=== PATIENT | female | born 1965 | race Caucasian/White ===

== ENCOUNTER 2023-10-07 13:17 | Outpatient (CLI) | payer BC | END 2023-10-07 13:18 | disposition home or self-care (01) | LOC: CSHWCC 13:17 | PROVIDERS: ATTEND Nurse Practitioner Family | DX: E11.621 Type 2 diabetes mellitus with foot ulcer (principal); L97.512 Non-pressure chronic ulcer of other part of right foot with fat layer exposed; L97.522 Non-pressure chronic ulcer of other part of left foot with fat layer exposed; M14.671 Charcot's joint, right ankle and foot; M14.672 Charcot's joint, left ankle and foot; C91.41 Hairy cell leukemia, in remission; N02.B1 Recurrent and persistent immunoglobulin A nephropathy with glomerular lesion; L95.8 Other vasculitis limited to the skin | CPT/HCPCS: 11042; 99213; G0463 ==

== ENCOUNTER 2023-11-03 10:25 | Outpatient (CLI) | payer BC | END 2023-11-03 10:26 | disposition home or self-care (01) | LOC: CSHWCC 10:25 | PROVIDERS: ATTEND Nurse Practitioner Family | DX: E11.621 Type 2 diabetes mellitus with foot ulcer (principal); L97.512 Non-pressure chronic ulcer of other part of right foot with fat layer exposed; L97.522 Non-pressure chronic ulcer of other part of left foot with fat layer exposed; M14.671 Charcot's joint, right ankle and foot; M14.672 Charcot's joint, left ankle and foot; C91.41 Hairy cell leukemia, in remission; L59.8 Other specified disorders of the skin and subcutaneous tissue related to radiation; N02.B1 Recurrent and persistent immunoglobulin A nephropathy with glomerular lesion | CPT/HCPCS: 11042; 87070; 87077; 87186; 87205; 97597 ==

== ENCOUNTER 2023-11-08 14:06 | Outpatient (CLI) | payer BC | END 2023-11-08 14:07 | disposition home or self-care (01) | LOC: CSHWCC 14:06 | PROVIDERS: ATTEND Nurse Practitioner Family | DX: E11.621 Type 2 diabetes mellitus with foot ulcer (principal); L97.512 Non-pressure chronic ulcer of other part of right foot with fat layer exposed; L97.522 Non-pressure chronic ulcer of other part of left foot with fat layer exposed; M14.671 Charcot's joint, right ankle and foot; M14.672 Charcot's joint, left ankle and foot; C91.41 Hairy cell leukemia, in remission; N02.B1 Recurrent and persistent immunoglobulin A nephropathy with glomerular lesion; L95.8 Other vasculitis limited to the skin; L08.9 Local infection of the skin and subcutaneous tissue, unspecified | CPT/HCPCS: 99213; G0463 ==

== ENCOUNTER 2023-11-11 10:21 | Outpatient (CLI) | payer BC | END 2023-11-11 10:22 | disposition home or self-care (01) | LOC: CSHWCC 10:21 | PROVIDERS: ATTEND Nurse Practitioner Family | DX: E11.621 Type 2 diabetes mellitus with foot ulcer (principal); L97.512 Non-pressure chronic ulcer of other part of right foot with fat layer exposed; L97.522 Non-pressure chronic ulcer of other part of left foot with fat layer exposed; M14.671 Charcot's joint, right ankle and foot; M14.672 Charcot's joint, left ankle and foot; C91.41 Hairy cell leukemia, in remission; N02.B1 Recurrent and persistent immunoglobulin A nephropathy with glomerular lesion; L95.8 Other vasculitis limited to the skin; L08.9 Local infection of the skin and subcutaneous tissue, unspecified | CPT/HCPCS: 11042; 97597 ==

== ENCOUNTER 2023-11-15 09:59 | Outpatient (CLI) | payer BC | END 2023-11-15 10:00 | disposition home or self-care (01) | LOC: CSHWCC 09:59 | PROVIDERS: ATTEND Nurse Practitioner Family | DX: E11.621 Type 2 diabetes mellitus with foot ulcer (principal); L97.512 Non-pressure chronic ulcer of other part of right foot with fat layer exposed; L97.522 Non-pressure chronic ulcer of other part of left foot with fat layer exposed; M14.671 Charcot's joint, right ankle and foot; M14.672 Charcot's joint, left ankle and foot; C91.41 Hairy cell leukemia, in remission; N02.B1 Recurrent and persistent immunoglobulin A nephropathy with glomerular lesion; L95.8 Other vasculitis limited to the skin; L08.9 Local infection of the skin and subcutaneous tissue, unspecified | CPT/HCPCS: 29445 ==

== ENCOUNTER 2023-11-17 10:52 | Outpatient (CLI) | payer BC | END 2023-11-17 10:53 | disposition home or self-care (01) | LOC: CSHWCC 10:52 | PROVIDERS: ATTEND Nurse Practitioner Family | DX: E11.621 Type 2 diabetes mellitus with foot ulcer (principal); L97.512 Non-pressure chronic ulcer of other part of right foot with fat layer exposed; L97.522 Non-pressure chronic ulcer of other part of left foot with fat layer exposed; M14.671 Charcot's joint, right ankle and foot; M14.672 Charcot's joint, left ankle and foot; C91.41 Hairy cell leukemia, in remission; N02.B1 Recurrent and persistent immunoglobulin A nephropathy with glomerular lesion; L95.8 Other vasculitis limited to the skin; L08.9 Local infection of the skin and subcutaneous tissue, unspecified | CPT/HCPCS: 11042 ==

== ENCOUNTER 2023-11-24 10:38 | Outpatient (CLI) | payer BC | END 2023-11-24 10:39 | disposition home or self-care (01) | LOC: CSHWCC 10:38 | PROVIDERS: ATTEND Nurse Practitioner Family | DX: E11.621 Type 2 diabetes mellitus with foot ulcer (principal); L97.512 Non-pressure chronic ulcer of other part of right foot with fat layer exposed; L97.522 Non-pressure chronic ulcer of other part of left foot with fat layer exposed; M14.671 Charcot's joint, right ankle and foot; M14.672 Charcot's joint, left ankle and foot; C91.41 Hairy cell leukemia, in remission; N02.B1 Recurrent and persistent immunoglobulin A nephropathy with glomerular lesion; L95.8 Other vasculitis limited to the skin; L08.9 Local infection of the skin and subcutaneous tissue, unspecified | CPT/HCPCS: 11042 ==

== ENCOUNTER 2023-12-01 10:06 | Outpatient (CLI) | payer BC | END 2023-12-01 10:07 | disposition home or self-care (01) | LOC: CSHWCC 10:06 | PROVIDERS: ATTEND Nurse Practitioner Family | DX: E11.621 Type 2 diabetes mellitus with foot ulcer (principal); L97.512 Non-pressure chronic ulcer of other part of right foot with fat layer exposed; L97.522 Non-pressure chronic ulcer of other part of left foot with fat layer exposed; M14.671 Charcot's joint, right ankle and foot; M14.672 Charcot's joint, left ankle and foot; C91.41 Hairy cell leukemia, in remission; N02.B1 Recurrent and persistent immunoglobulin A nephropathy with glomerular lesion; L95.8 Other vasculitis limited to the skin; L08.9 Local infection of the skin and subcutaneous tissue, unspecified | CPT/HCPCS: 11042 ==

== ENCOUNTER 2023-12-08 09:52 | Outpatient (CLI) | payer BC | END 2023-12-08 09:53 | disposition home or self-care (01) | LOC: CSHWCC 09:52 | PROVIDERS: ATTEND Nurse Practitioner Family | DX: E11.621 Type 2 diabetes mellitus with foot ulcer (principal); L97.512 Non-pressure chronic ulcer of other part of right foot with fat layer exposed; L97.522 Non-pressure chronic ulcer of other part of left foot with fat layer exposed; M14.671 Charcot's joint, right ankle and foot; M14.672 Charcot's joint, left ankle and foot; C91.41 Hairy cell leukemia, in remission; N02.B1 Recurrent and persistent immunoglobulin A nephropathy with glomerular lesion; L95.8 Other vasculitis limited to the skin; L08.9 Local infection of the skin and subcutaneous tissue, unspecified | CPT/HCPCS: 97597; 99213; G0463 ==

== ENCOUNTER 2023-12-15 09:39 | Outpatient (CLI) | payer BC | END 2023-12-15 09:40 | disposition home or self-care (01) | LOC: CSHWCC 09:39 | PROVIDERS: ATTEND Nurse Practitioner Family | DX: E11.621 Type 2 diabetes mellitus with foot ulcer (principal); L97.512 Non-pressure chronic ulcer of other part of right foot with fat layer exposed; M14.671 Charcot's joint, right ankle and foot; M14.672 Charcot's joint, left ankle and foot; C91.41 Hairy cell leukemia, in remission; N02.B1 Recurrent and persistent immunoglobulin A nephropathy with glomerular lesion; L95.8 Other vasculitis limited to the skin; L08.9 Local infection of the skin and subcutaneous tissue, unspecified | CPT/HCPCS: 97597 ==

== ENCOUNTER 2023-12-22 16:05 | Outpatient (CLI) | payer BC | END 2023-12-22 16:06 | disposition home or self-care (01) | LOC: CSHWCC 16:05 | PROVIDERS: ATTEND Nurse Practitioner Family | DX: E11.621 Type 2 diabetes mellitus with foot ulcer (principal); L97.512 Non-pressure chronic ulcer of other part of right foot with fat layer exposed; M14.671 Charcot's joint, right ankle and foot; M14.672 Charcot's joint, left ankle and foot; C91.41 Hairy cell leukemia, in remission; N02.B1 Recurrent and persistent immunoglobulin A nephropathy with glomerular lesion; L95.8 Other vasculitis limited to the skin; L08.9 Local infection of the skin and subcutaneous tissue, unspecified | CPT/HCPCS: 11042 ==

== ENCOUNTER 2024-01-05 11:55 | Outpatient (CLI) | payer BC | END 2024-01-05 11:56 | disposition home or self-care (01) | LOC: CSHWCC 11:55 | PROVIDERS: ATTEND Nurse Practitioner Family | DX: E11.621 Type 2 diabetes mellitus with foot ulcer (principal); L97.512 Non-pressure chronic ulcer of other part of right foot with fat layer exposed; M14.671 Charcot's joint, right ankle and foot; M14.672 Charcot's joint, left ankle and foot; C91.41 Hairy cell leukemia, in remission; N02.B1 Recurrent and persistent immunoglobulin A nephropathy with glomerular lesion; L95.8 Other vasculitis limited to the skin; L08.9 Local infection of the skin and subcutaneous tissue, unspecified | CPT/HCPCS: 11042 ==

== ENCOUNTER 2024-01-19 08:13 | Outpatient (CLI) | payer BC | END 2024-01-19 08:14 | disposition home or self-care (01) | LOC: CSHWCC 08:13 | PROVIDERS: ATTEND Nurse Practitioner Family | DX: E11.621 Type 2 diabetes mellitus with foot ulcer (principal); L97.512 Non-pressure chronic ulcer of other part of right foot with fat layer exposed; M14.671 Charcot's joint, right ankle and foot; M14.672 Charcot's joint, left ankle and foot; C91.41 Hairy cell leukemia, in remission; N02.B1 Recurrent and persistent immunoglobulin A nephropathy with glomerular lesion; L95.8 Other vasculitis limited to the skin; L08.9 Local infection of the skin and subcutaneous tissue, unspecified | CPT/HCPCS: 29445 ==

== ENCOUNTER 2024-01-26 15:40 | Outpatient (CLI) | payer BC | END 2024-01-26 15:41 | disposition home or self-care (01) | LOC: CSHWCC 15:40 | PROVIDERS: ATTEND Nurse Practitioner Family | DX: E11.621 Type 2 diabetes mellitus with foot ulcer (principal); L97.512 Non-pressure chronic ulcer of other part of right foot with fat layer exposed; M14.671 Charcot's joint, right ankle and foot; M14.672 Charcot's joint, left ankle and foot; C91.41 Hairy cell leukemia, in remission; N02.B1 Recurrent and persistent immunoglobulin A nephropathy with glomerular lesion; L95.8 Other vasculitis limited to the skin; L08.9 Local infection of the skin and subcutaneous tissue, unspecified | CPT/HCPCS: 97597 ==

== ENCOUNTER 2024-02-02 15:57 | Outpatient (CLI) | payer BC | END 2024-02-02 15:58 | disposition home or self-care (01) | LOC: CSHWCC 15:57 | PROVIDERS: ATTEND Nurse Practitioner Family | DX: E11.621 Type 2 diabetes mellitus with foot ulcer (principal); L97.512 Non-pressure chronic ulcer of other part of right foot with fat layer exposed; C91.41 Hairy cell leukemia, in remission; M14.671 Charcot's joint, right ankle and foot; M14.672 Charcot's joint, left ankle and foot; N02.B1 Recurrent and persistent immunoglobulin A nephropathy with glomerular lesion; L95.8 Other vasculitis limited to the skin; L08.9 Local infection of the skin and subcutaneous tissue, unspecified | CPT/HCPCS: 99212; G0463 ==

== ENCOUNTER 2024-02-15 15:45 | Outpatient (CLI) | payer BC | END 2024-02-15 15:46 | disposition home or self-care (01) | LOC: CSHWCC 15:45 | PROVIDERS: ATTEND Nurse Practitioner Family | DX: M14.671 Charcot's joint, right ankle and foot (principal); M14.672 Charcot's joint, left ankle and foot; C91.41 Hairy cell leukemia, in remission; N02.B1 Recurrent and persistent immunoglobulin A nephropathy with glomerular lesion; Z86.31 Personal history of diabetic foot ulcer | CPT/HCPCS: 99212; G0463 ==

== ENCOUNTER 2024-02-23 10:10 | Outpatient (CLI) | payer BC | END 2024-02-23 10:11 | disposition home or self-care (01) | LOC: CSHWCC 10:10 | PROVIDERS: ATTEND Nurse Practitioner Family | DX: M14.671 Charcot's joint, right ankle and foot (principal); M14.672 Charcot's joint, left ankle and foot; C91.41 Hairy cell leukemia, in remission; N02.B1 Recurrent and persistent immunoglobulin A nephropathy with glomerular lesion; L95.8 Other vasculitis limited to the skin; Z86.31 Personal history of diabetic foot ulcer ==

== ENCOUNTER 2024-03-24 14:31 | Outpatient (CLI) | payer BC | END 2024-03-24 14:32 | disposition home or self-care (01) | LOC: CSHWCC 14:31 | PROVIDERS: ATTEND Nurse Practitioner Family | DX: E11.621 Type 2 diabetes mellitus with foot ulcer (principal); L97.512 Non-pressure chronic ulcer of other part of right foot with fat layer exposed; L97.522 Non-pressure chronic ulcer of other part of left foot with fat layer exposed; C91.41 Hairy cell leukemia, in remission; N02.B1 Recurrent and persistent immunoglobulin A nephropathy with glomerular lesion; L59.8 Other specified disorders of the skin and subcutaneous tissue related to radiation; M14.671 Charcot's joint, right ankle and foot; M14.672 Charcot's joint, left ankle and foot | CPT/HCPCS: 97597 ==

== ENCOUNTER 2024-09-11 10:14 | Outpatient (CLI) | payer BC | END 2024-09-11 10:15 | disposition home or self-care (01) | LOC: CSHWCC 10:14 | PROVIDERS: ATTEND Nurse Practitioner Family | DX: E11.621 Type 2 diabetes mellitus with foot ulcer (principal); L97.509 Non-pressure chronic ulcer of other part of unspecified foot with unspecified severity; M14.671 Charcot's joint, right ankle and foot; M14.672 Charcot's joint, left ankle and foot; C91.41 Hairy cell leukemia, in remission; N02.B1 Recurrent and persistent immunoglobulin A nephropathy with glomerular lesion; Z86.31 Personal history of diabetic foot ulcer | CPT/HCPCS: 99212; G0463 ==

== ENCOUNTER 2024-10-25 12:47 | Outpatient (CLI) | payer BC | END 2024-10-25 12:48 | disposition home or self-care (01) | LOC: CSHWCC 12:47 | PROVIDERS: ATTEND Nurse Practitioner Family | DX: L97.522 Non-pressure chronic ulcer of other part of left foot with fat layer exposed (principal); M14.672 Charcot's joint, left ankle and foot; C91.41 Hairy cell leukemia, in remission; N02.B1 Recurrent and persistent immunoglobulin A nephropathy with glomerular lesion | CPT/HCPCS: 97597; 99213; G0463 ==

== ENCOUNTER 2024-11-10 12:52 | Outpatient (CLI) | payer BC | END 2024-11-10 12:53 | disposition home or self-care (01) | LOC: CSHWCC 12:52 | PROVIDERS: ATTEND Nurse Practitioner Family | DX: L97.522 Non-pressure chronic ulcer of other part of left foot with fat layer exposed (principal); M14.672 Charcot's joint, left ankle and foot; C91.41 Hairy cell leukemia, in remission; N02.B1 Recurrent and persistent immunoglobulin A nephropathy with glomerular lesion | CPT/HCPCS: 97597 ==

== ENCOUNTER 2024-11-17 10:50 | Outpatient (CLI) | payer BC | END 2024-11-17 10:51 | disposition home or self-care (01) | LOC: CSHWCC 10:50 | PROVIDERS: ATTEND Nurse Practitioner Family | DX: L97.522 Non-pressure chronic ulcer of other part of left foot with fat layer exposed (principal); C91.41 Hairy cell leukemia, in remission; M14.672 Charcot's joint, left ankle and foot; N02.B1 Recurrent and persistent immunoglobulin A nephropathy with glomerular lesion | CPT/HCPCS: 11042 ==

== ENCOUNTER 2024-11-24 11:35 | Outpatient (CLI) | payer BC | END 2024-11-24 11:36 | disposition home or self-care (01) | LOC: CSHWCC 11:35 | PROVIDERS: ATTEND Nurse Practitioner Family | DX: L97.522 Non-pressure chronic ulcer of other part of left foot with fat layer exposed (principal); M14.672 Charcot's joint, left ankle and foot; C91.41 Hairy cell leukemia, in remission; N02.B1 Recurrent and persistent immunoglobulin A nephropathy with glomerular lesion | CPT/HCPCS: 97597 ==

== ENCOUNTER 2024-11-30 13:28 | Outpatient (CLI) | payer BC | END 2024-11-30 13:29 | disposition home or self-care (01) | LOC: CSHWCC 13:28 | PROVIDERS: ATTEND Nurse Practitioner Family | DX: L97.522 Non-pressure chronic ulcer of other part of left foot with fat layer exposed (principal); M14.672 Charcot's joint, left ankle and foot; N02.B1 Recurrent and persistent immunoglobulin A nephropathy with glomerular lesion; C91.41 Hairy cell leukemia, in remission | CPT/HCPCS: 97597 ==

== ENCOUNTER 2024-12-13 10:57 | Outpatient (CLI) | payer BC | END 2024-12-13 10:58 | disposition home or self-care (01) | LOC: CSHWCC 10:57 | PROVIDERS: ATTEND Nurse Practitioner Family | DX: L97.522 Non-pressure chronic ulcer of other part of left foot with fat layer exposed (principal); M14.672 Charcot's joint, left ankle and foot; C91.41 Hairy cell leukemia, in remission; N02.B1 Recurrent and persistent immunoglobulin A nephropathy with glomerular lesion | CPT/HCPCS: 97597 ==

== ENCOUNTER 2025-01-02 14:22 | Outpatient (CLI) | payer BC | END 2025-01-02 14:23 | disposition home or self-care (01) | LOC: CSHWCC 14:22 | PROVIDERS: ATTEND Family Medicine | DX: L97.522 Non-pressure chronic ulcer of other part of left foot with fat layer exposed (principal); M14.672 Charcot's joint, left ankle and foot; C91.41 Hairy cell leukemia, in remission; N02.B1 Recurrent and persistent immunoglobulin A nephropathy with glomerular lesion | CPT/HCPCS: 11042 ==

== ENCOUNTER 2025-01-23 09:27 | Outpatient (CLI) | payer BC | END 2025-01-23 09:28 | disposition home or self-care (01) | LOC: CSHWCC 09:27 | PROVIDERS: ATTEND Nurse Practitioner Family | DX: L97.522 Non-pressure chronic ulcer of other part of left foot with fat layer exposed (principal); M14.672 Charcot's joint, left ankle and foot; C91.41 Hairy cell leukemia, in remission; N02.B1 Recurrent and persistent immunoglobulin A nephropathy with glomerular lesion | CPT/HCPCS: 97597 ==